=== PATIENT | female | born 1995 | race African-American/Black ===

== ENCOUNTER 2019-09-25 13:07 | Emergency (ER) | payer MEDICAID ==
[~2019-09-25] VITALS: Ht 170.2 cm; Wt 65.0 kg
[2019-09-25] MEDS ORDERED: IPRATROPIUM BROMIDE (0.02%) 0.5MG/2.5ML NEB HHN ONE (15:00)
[2019-09-25] MEDS ORDERED: ALBUTEROL (0.083%) 2.5MG/3ML NEB HHN ONE (15:00)
[2019-09-25 16:12] LABS: HEMATOCRIT. 29.6 % (36.0-48.0); HEMOGLOBIN. 9.6 g/dL (12.0-16.0); MEAN CORPUSCULAR HEMOGLOBIN 26.2 pg (28.0-32.0); MEAN CORPUSCULAR VOLUME 81.3 fL (81.0-99.0); MEAN PLATELET VOLUME 8.6 fl (7.4-10.4); PLATELET 364 x1000/uL (130-400); RED BLOOD CELL COUNT 3.65 mill/uL (4.2-5.4); RED CELL DISTRIBUTION WIDTH 16.8 % (11.6-14.6)
[2019-09-25 16:15] LABS: CHLORIDE 106 mEq/L (98-107)
[2019-09-25 16:39] LABS: PLATELET ESTIMATE NORMAL
[2019-09-25 17:06] LABS: HCG SCREEN NEGATIVE
[2019-09-25] MEDS ORDERED: IBUPROFEN 600MG TABLET PO ONE (18:15)
[2019-09-25 18:54] VITALS: BP 129/78
== END 2019-09-25 18:55 | disposition home or self-care (01) ==
LOC: ER 13:07
DX: J45.901 Unspecified asthma with (acute) exacerbation (principal); R07.81 Pleurodynia; R05 Cough
CPT/HCPCS: 36415; 71045; 80048; 84703; 85025; 85379; 93005; 94640; 99284; J7611; Z7610